=== PATIENT | male | born 1995 | race Caucasian/White ===

== ENCOUNTER 2017-06-24 11:56 | Outpatient (CLI) | payer OTHER ==
--- NOTE | 2017-06-24 14:12 | RAD ---
3 VIEWS LEFT SHOULDER: Date: 06/24/17 HISTORY: Left shoulder injury. FINDINGS: There are lucencies within the glenoid with surrounding sclerosis which may be related to prior posts urgical change. There is no fracture or dislocation seen. On the internally rotated view, the distal clavicle does appear to be slightly elevated with respect to the acromion and mild left AC separation /sprain is suggested. Coracoclavicular distance is within normal limits. No fracture is identified an d there is no dislocation of the glenohumeral joint. IMPRESSION: 1. Evidence for mild AC separation/strain. Correlation for point tenderness at the acromioclavicular joint is recommended. 2. Lucencies within the glenoid which may be related to prior postsurgical changes. 3. No acute fracture or dislocation. POS: [facility]
== END 2017-06-24 11:57 | disposition home or self-care (01) ==
LOC: SCSRAD 11:56
PROVIDERS: ATTEND Nurse Practitioner Family
DX: S49.92XA Unspecified injury of left shoulder and upper arm, initial encounter (principal); R93.7 Abnormal findings on diagnostic imaging of other parts of musculoskeletal system